=== PATIENT | female | born 1960 | race Caucasian/White ===

== ENCOUNTER 2019-10-12 20:07 | Emergency (ER) | payer MEDICARE, MEDICAID, SELFPAY ==
[2019-10-12 20:40] LABS: Basophils % 0.4 %; Eosinophils # 0.3 10^3/uL (0.0-0.8); Eosinophils % 5.2 %; Hematocrit 30.9 % (37.0-47.0); Hemoglobin 9.6 g/dL (11.5-15.3); Lymphocytes # 0.4 10^3/uL (0.8-4.8); Lymphocytes % 7.4 %; Mean Corpuscular HGB Conc 31.1 g/dL (30.0-36.0); Mean Corpuscular Hemoglobin 25.7 pg (28.0-34.0); Mean Corpuscular Volume 82.6 fL (81-99); Mean Platelet Volume 12.2 fL (7.4-10.4); Monocytes # 0.6 10^3/uL (0.2-0.9); Neutrophils # 3.8 10^3/uL (1.8-7.7); Neutrophils % 75.4 %; Nucleated Red Blood Cells % 0 %; Platelet Count 89 10^3/cmm (130-400); Red Blood Count 3.74 10^6/uL (4.1-5.3); Red Cell Distribution Width 17.2 % (12.1-15.1)
[2019-10-12 20:41] VITALS: BP 150/88; PULSE 75; RESP 18; TEMP 36.8; O2SAT 100; BMI 23.0
[2019-10-12 20:52] LABS: Alanine Aminotransferase 43 U/L (0-33); Albumin Level 3.8 g/dL (3.5-5.2); Alkaline Phosphatase 183 IU/L (35-105); Anion Gap 16.7 (5-19); Aspartate Amino Transferase 37 U/L (0-32); Blood Urea Nitrogen 8 mg/dL (8-23); Calcium 9.7 mg/dL (8.5-10.5); Carbon Dioxide 21 mmol/L (22-29); Chloride 91 mmol/L (98-107); Creatinine Clr Calc Pharmacy 74.2425; Globulin 4.1 g/dL (1.3-4.6); Glomerular Filtration Rate 85.4 mL/min (90-130); Glucose 178 mg/dL (65-115); Osmolality Calculated 258 mOsm/kg (285-295); Potassium 4.7 mmol/L (3.5-5.1); Sodium 124 mmol/L (136-145); Total Bilirubin 0.7 mg/dL (0.15-1.2); Total Protein 7.9 g/dL (6.6-8.7)
--- NOTE | 2019-10-12 21:05 | CTR_ITS ---
PROCEDURE INFORMATION: Exam: CT Abdomen And Pelvis With Contrast Exam date and time: 10/12/2019 9:38 PM Age: 59 years old Clinical indication: Other: Gi bleed; Prior surgery; Surgery date: 6+ months; Surgery type: Gb, ooph; Patient HX: C/O rectal bleeding today HX of cirrhosis and esoph varices TECHNIQUE: Imaging protocol: Computed tomography of the abdomen and pelvis with intravenous contrast. Radiation optimization: All CT scans at this facility use at least one of these dose optimization techniques: automated exposure control; mA and/or kV adjustment per patient size (includes targeted exams where dose is matched to clinical indication); or iterative reconstruction. Contrast material: OMNI 300; Contrast volume: 95 ml; Contrast route: 20G; COMPARISON: US Abdomen* [id number] 03/26/2019 8:39 AM FINDINGS: Lungs: Large right lower lobe bullae. Liver: Cirrhotic liver. Gallbladder wall thickening may be related to cirrhotic liver. Gallbladder and bile ducts: Normal. No calcified stones. No ductal dilation. Pancreas: Normal. No ductal dilation. Spleen: Normal. No splenomegaly. Adrenals: Right adrenal 18 mm nodule, dedicated nonemergent adrenal imaging advised. Kidneys and ureters: Several right kidney cysts. Left kidney nonobstructive calyceal stones. Stomach and bowel: Rectal varices seen without active extravasation. Appendix: No evidence of appendicitis. Intraperitoneal space: Moderate ascites throughout the abdomen. Diffuse bowel wall thickening likely related underlying ascites. Vasculature: Unremarkable. No abdominal aortic aneurysm. Lymph nodes: Unremarkable. No enlarged lymph nodes. Bladder: Unremarkable as visualized. Reproductive: Unremarkable as visualized. Bones/joints: Unremarkable. No acute fracture. Soft tissues: Unremarkable. CT/CT abdomen pelvis w con* [id number] IMPRESSION: 1. Negative for focal acute inflammatory process. 2. Rectal varices seen without active extravasation. 3. Large right lower lobe bullae. 4. Cirrhotic liver. 5. Gallbladder wall thickening may be related to cirrhotic liver. 6. Moderate ascites throughout the abdomen. 7. Diffuse bowel wall thickening likely related underlying ascites. 8. Right adrenal 18 mm nodule, dedicated nonemergent adrenal imaging advised. 9. Several right kidney cysts. 10. Left kidney nonobstructive calyceal stones. Radiation Dose CTDIVOL = (mGy): DLP = 525.55 (mGy-cm)
--- NOTE | 2019-10-12 21:29 | W.ED.GIBLEED ---
Documented by User: BERTIN Gallo 10/12/19 23:21 HPI - GI Bleed General: Chief complaint: GI Bleed Stated complaint: rectal bleeding Time Seen by Provider: 10/12/19 20:50 History of Present Illness: HPI Narrative: Patient started with bright red rectal bleeding today got better toward afternoon that she went on 8 then got home and felt like she need to have a bowel movement and then had some more bright red bleeding that finally stopped. Does not feel dizzy no shortness of breath no emesis Patient has a history of esophageal varices with banding multiple times history of alcoholic cirrhosis low platelet count hypothyroidism and type 2 diabetes MD complaint: blood on toilet paper and gross hematochezia Onset (ago): hour(s) Pain Consistency: now resolved Severity: mild Relieving factors: none Exacerbating factors: none Context: history of GI bleed, liver disease, hemorrhoids and known esophageal varices Associated symptoms: Reports no associated symptoms; Denies abdominal pain, chills, easy bruising, fever(s), headache(s), nausea, rash or vomiting Review of Systems Const: Denies: fever, chills or body aches Eyes: Denies: change in vision or blurry vision ENMT: Denies: throat pain or nasal congestion Card: Denies: chest pain or shortness of breath on exertion Resp: Denies: shortness of breath, productive cough or non-productive cough GI: Reports: blood in stool; Denies: abdominal pain, nausea, vomiting or black tarry stool Musc: Denies: extremity pain Skin/Breast: Denies: rash Neuro: Denies: headache Psych: Denies: anxiety or depression Ty/Lymph: Denies: easy bruising PFSH ED PFSH: Social History (Updated 09/23/19 @ 21:07 by BERTIN Reed) Smoking and tobacco status: current every day smoker Second hand smoke exposure: No Alcohol intake: former Lives independently: Yes Physical Exam Const: COMMON NORMALS: no apparent distress, average body habitus and oriented x3 HENMT: COMMON NORMALS: normocephalic HEAD & SCALP: normal to inspection and normocephalic FACE & SINUS: normal facial exam Eye: COMMON NORMALS: conjunctivae normal GENERAL EYE: normal appearance of both eyes CONJUNCTIVA: Yes conjunctivae normal Neck/C-Spine: COMMON NORMALS: no JVD Chest: COMMONS NORMALS: inspection of chest normal Resp: COMMON NORMALS: normal respiratory effort and clear to auscultation bilaterally AUSCULTATION: clear to auscultation bilaterally Cardio: COMMON NORMALS: no JVD, regular rate and regular rhythm RATE: regular rate RHYTHM: regular rhythm GI: COMMON NORMALS: normal to inspection, nondistended, normoactive bowel sounds; negative for no hepatosplenomegaly AUSCULTATION: Yes normoactive bowel sounds PALPATION: No no hepatosplenomegaly and Yes hepatomegaly PERCUSSION: dullness to percussion RECTAL EXAM: No heme negative stool and hemorrhoids Extremity: COMMON NORMALS: normal to inspection and full ROM Neuro: COMMON NORMALS: oriented x3 Procedures Stool Hemoccult Procedural Steps Taken: stool placed in appropriate test area, developer placed on stool and control areas and controls appropriately positive and negative Hemoccult result: positive Course Vital Signs: Vital signs: Vital Signs Temperature 98.2 F 10/12/19 20:41 Pulse Rate 76 10/13/19 00:34 Respiratory Rate 16 10/13/19 00:34 Blood Pressure 124/72 10/13/19 00:34 Pulse Oximetry 99 10/13/19 00:34 MDM - GI Bleed MDM Narrative: Medical decision making narrative: Discussed case with Dr. Simms agrees with plan of care patient to follow-up at clinic in a day or 2 and get repeat CBC patient wants go home does not want to be admitted to the hospital for observation bleeding has not happened since she has been here in the ER Lab Data: Labs: Lab Results 10/12/19 10/12/19 10/12/19 Range/Units 20:28 20:28 20:28 WBC 5.0 (4.0-10.0) 10^3/ uL RBC 3.74 L (4.1-5.3) 10^6/u L Hgb 9.6 L (11.5-15.3) g/dL Hct 30.9 L (37.0-47.0) % MCV 82.6 (81-99) fL MCH 25.7 L (28.0-34.0) pg MCHC 31.1 (30.0-36.0) g/dL RDW 17.2 H (12.1-15.1) % Plt Count 89 L (130-400) 10^3/c mm MPV 12.2 H (7.4-10.4) fL Neut % (Auto) 75.4 % Lymph % (Auto) 7.4 % Beckham % (Auto) 11.0 % Eos % (Auto) 5.2 % Baso % (Auto) 0.4 % Neut # (Auto) 3.8 (1.8-7.7) 10^3/u L Lymph # (Auto) 0.4 L (0.8-4.8) 10^3/u L Beckham # (Auto) 0.6 (0.2-0.9) 10^3/u L Eos # (Auto) 0.3 (0.0-0.8) 10^3/u L Baso # (Auto) 0.0 (0.0-0.1) 10^3/u L Nucleated RBC % (a uto) 0 % Nucleated RBCs # 0.0 /100WBC PT 13.50 H (10.5-13.3) SECO NDS INR 1.00 (0.8-1.2) Sodium 124 L (136-145) mmol/L Potassium 4.7 (3.5-5.1) mmol/L Chloride 91 L (98-107) mmol/L Carbon Dioxide 21 L (22-29) mmol/L Anion Gap 16.7 (5-19) BUN 8 (8-23) mg/dL Creatinine 0.7 (0.5-0.9) mg/dL GFR Calculation 85.4 L (90-130) mL/min Glucose 178 H (65-115) mg/dL Calculated Osmolal ity 258 L (285-295) mOsm/k g Calcium 9.7 (8.5-10.5) mg/dL Total Bilirubin 0.7 (0.15-1.2) mg/dL AST 37 H (0-32) U/L ALT 43 H (0-33) U/L Alkaline Phosphata se 183 H (35-105) IU/L Total Protein 7.9 (6.6-8.7) g/dL Albumin 3.8 (3.5-5.2) g/dL Globulin 4.1 (1.3-4.6) g/dL Blood Type Rho(D) Type Antibody Screen 05/10/20 Range/Units 20:28 WBC (4.0-10.0) 10^3/ uL RBC (4.1-5.3) 10^6/u L Hgb (11.5-15.3) g/dL Hct (37.0-47.0) % MCV (81-99) fL MCH (28.0-34.0) pg MCHC (30.0-36.0) g/dL RDW (12.1-15.1) % Plt Count (130-400) 10^3/c mm MPV (7.4-10.4) fL Neut % (Auto) % Lymph % (Auto) % Beckham % (Auto) % Eos % (Auto) % Baso % (Auto) % Neut # (Auto) (1.8-7.7) 10^3/u L Lymph # (Auto) (0.8-4.8) 10^3/u L Beckham # (Auto) (0.2-0.9) 10^3/u L Eos # (Auto) (0.0-0.8) 10^3/u L Baso # (Auto) (0.0-0.1) 10^3/u L Nucleated RBC % (a uto) % Nucleated RBCs # /100WBC PT (10.5-13.3) SECO NDS INR (0.8-1.2) Sodium (136-145) mmol/L Potassium (3.5-5.1) mmol/L Chloride (98-107) mmol/L Carbon Dioxide (22-29) mmol/L Anion Gap (5-19) BUN (8-23) mg/dL Creatinine (0.5-0.9) mg/dL GFR Calculation (90-130) mL/min Glucose (65-115) mg/dL Calculated Osmolal ity (285-295) mOsm/k g Calcium (8.5-10.5) mg/dL Total Bilirubin (0.15-1.2) mg/dL AST (0-32) U/L ALT (0-33) U/L Alkaline Phosphata se (35-105) IU/L Total Protein (6.6-8.7) g/dL Albumin (3.5-5.2) g/dL Globulin (1.3-4.6) g/dL Blood Type A Negative Rho(D) Type Negaive Antibody Screen Negative Discharge Plan Discharge Patient Disposition: Home, Self-Care Clinical Impression: Alcoholic cirrhosis of liver without ascites, Hematochezia Condition: Stable Prescriptions: No Action sulfamethoxazole-trimethoprim [Bactrim DS] 800-160 mg tablet 1 tab PO BID 10 Days Qty: 20 RF: 0 omeprazole 40 mg capsule,delayed release(DR/EC) 40 mg PO DAILY RF: 0 levothyroxine 75 mcg capsule 75 mcg PO DAILY RF: 0 propranolol 120 mg capsule,extended release 24 hr 120 mg PO DAILY RF: 0 spironolactone 50 mg tablet 50 mg PO BID RF: 0 glipizide 5 mg tablet extended release 24hr 5 mg PO DAILY RF: 0 metformin 1,000 mg tablet 1,000 mg PO BID RF: 0 trazodone 50 mg tablet 50 mg PO DAILY RF: 0 Discharge Orders: Discharge Order (Routine); Ordered 10/12/19 Ordered By: Willi Gibbs Discharge Diet: Usual diet Discharge Activity: Resume usual activity Patient Instructions: Hemorrhoids (ED) Activity Restrictions/Additional Instructions: Follow-up with medical provider as directed. Return to the ER or your medical provider if condition worsens. Please read and understand discharge instructions. If any questions ask please. Follow-up with BERTIN Alcala in a couple days and get hemoglobin rechecked hemoglobin here in the ER was 9.6 Discharge Date/Time: 10/13/19 00:35 Coding Level of Care Code ED Oil Developer for Chg Fwd Exam Comprehensive Documented by User: Emigdio Simms DO 10/13/19 02:35 HPI - GI Bleed General: Chief complaint: GI Bleed Stated complaint: rectal bleeding Time Seen by Provider: 10/12/19 20:50 PFSH ED PFSH: Social History (Updated 09/23/19 @ 21:07 by BERTIN Reed) Smoking and tobacco status: current every day smoker Second hand smoke exposure: No Alcohol intake: former Lives independently: Yes Course Vital Signs: Vital signs: Vital Signs Temperature 98.2 F 10/12/19 20:41 Pulse Rate 76 10/13/19 00:34 Respiratory Rate 16 10/13/19 00:34 Blood Pressure 124/72 10/13/19 00:34 Pulse Oximetry 99 10/13/19 00:34 MDM - GI Bleed MDM Narrative: Medical decision making narrative: 59-year-old female checked out to me by BERTIN Crockett. I agree with his history, examination, and work-up. This lady has not had any further bleeding since coming to the ER. She has been up walking in the ER. Her hemoglobin is 9.6, she believes that stable from her prior hemoglobin of couple of months ago. She will have her blood count checked in 48 hours. She will return for any return of bleeding. She is received some IV fluid resuscitation here. She is feeling much better. She was offered admission, but she asked to go home. Lab Data: Labs: Lab Results 10/12/19 10/12/19 10/12/19 Range/Units 20:28 20:28 20:28 WBC 5.0 (4.0-10.0) 10^3/ uL RBC 3.74 L (4.1-5.3) 10^6/u L Hgb 9.6 L (11.5-15.3) g/dL Hct 30.9 L (37.0-47.0) % MCV 82.6 (81-99) fL MCH 25.7 L (28.0-34.0) pg MCHC 31.1 (30.0-36.0) g/dL RDW 17.2 H (12.1-15.1) % Plt Count 89 L (130-400) 10^3/c mm MPV 12.2 H (7.4-10.4) fL Neut % (Auto) 75.4 % Lymph % (Auto) 7.4 % Beckham % (Auto) 11.0 % Eos % (Auto) 5.2 % Baso % (Auto) 0.4 % Neut # (Auto) 3.8 (1.8-7.7) 10^3/u L Lymph # (Auto) 0.4 L (0.8-4.8) 10^3/u L Beckham # (Auto) 0.6 (0.2-0.9) 10^3/u L Eos # (Auto) 0.3 (0.0-0.8) 10^3/u L Baso # (Auto) 0.0 (0.0-0.1) 10^3/u L Nucleated RBC % (a uto) 0 % Nucleated RBCs # 0.0 /100WBC PT 13.50 H (10.5-13.3) SECO NDS INR 1.00 (0.8-1.2) Sodium 124 L (136-145) mmol/L Potassium 4.7 (3.5-5.1) mmol/L Chloride 91 L (98-107) mmol/L Carbon Dioxide 21 L (22-29) mmol/L Anion Gap 16.7 (5-19) BUN 8 (8-23) mg/dL Creatinine 0.7 (0.5-0.9) mg/dL GFR Calculation 85.4 L (90-130) mL/min Glucose 178 H (65-115) mg/dL Calculated Osmolal ity 258 L (285-295) mOsm/k g Calcium 9.7 (8.5-10.5) mg/dL Total Bilirubin 0.7 (0.15-1.2) mg/dL AST 37 H (0-32) U/L ALT 43 H (0-33) U/L Alkaline Phosphata se 183 H (35-105) IU/L Total Protein 7.9 (6.6-8.7) g/dL Albumin 3.8 (3.5-5.2) g/dL Globulin 4.1 (1.3-4.6) g/dL Blood Type Rho(D) Type Antibody Screen 10/12/19 Range/Units 20:28 WBC (4.0-10.0) 10^3/ uL RBC (4.1-5.3) 10^6/u L Hgb (11.5-15.3) g/dL Hct (37.0-47.0) % MCV (81-99) fL MCH (28.0-34.0) pg MCHC (30.0-36.0) g/dL RDW (12.1-15.1) % Plt Count (130-400) 10^3/c mm MPV (7.4-10.4) fL Neut % (Auto) % Lymph % (Auto) % Beckham % (Auto) % Eos % (Auto) % Baso % (Auto) % Neut # (Auto) (1.8-7.7) 10^3/u L Lymph # (Auto) (0.8-4.8) 10^3/u L Beckham # (Auto) (0.2-0.9) 10^3/u L Eos # (Auto) (0.0-0.8) 10^3/u L Baso # (Auto) (0.0-0.1) 10^3/u L Nucleated RBC % (a uto) % Nucleated RBCs # /100WBC PT (10.5-13.3) SECO NDS INR (0.8-1.2) Sodium (136-145) mmol/L Potassium (3.5-5.1) mmol/L Chloride (98-107) mmol/L Carbon Dioxide (22-29) mmol/L Anion Gap (5-19) BUN (8-23) mg/dL Creatinine (0.5-0.9) mg/dL GFR Calculation (90-130) mL/min Glucose (65-115) mg/dL Calculated Osmolal ity (285-295) mOsm/k g Calcium (8.5-10.5) mg/dL Total Bilirubin (0.15-1.2) mg/dL AST (0-32) U/L ALT (0-33) U/L Alkaline Phosphata se (35-105) IU/L Total Protein (6.6-8.7) g/dL Albumin (3.5-5.2) g/dL Globulin (1.3-4.6) g/dL Blood Type A Negative Rho(D) Type Negaive Antibody Screen Negative Discharge Plan Discharge Patient Disposition: Home, Self-Care Clinical Impression: Alcoholic cirrhosis of liver without ascites, Hematochezia Condition: Stable Prescriptions: No Action sulfamethoxazole-trimethoprim [Bactrim DS] 800-160 mg tablet 1 tab PO BID 10 Days Qty: 20 RF: 0 omeprazole 40 mg capsule,delayed release(DR/EC) 40 mg PO DAILY RF: 0 levothyroxine 75 mcg capsule 75 mcg PO DAILY RF: 0 propranolol 120 mg capsule,extended release 24 hr 120 mg PO DAILY RF: 0 spironolactone 50 mg tablet 50 mg PO BID RF: 0 glipizide 5 mg tablet extended release 24hr 5 mg PO DAILY RF: 0 metformin 1,000 mg tablet 1,000 mg PO BID RF: 0 trazodone 50 mg tablet 50 mg PO DAILY RF: 0 Discharge Orders: Discharge Order (Routine); Ordered 10/12/19 Ordered By: Willi Gibbs Discharge Diet: Usual diet Discharge Activity: Resume usual activity Patient Instructions: Hemorrhoids (ED) Activity Restrictions/Additional Instructions: Follow-up with medical provider as directed. Return to the ER or your medical provider if condition worsens. Please read and understand discharge instructions. If any questions ask please. Follow-up with BERTIN Alcala in a couple days and get hemoglobin rechecked hemoglobin here in the ER was 9.6 Discharge Date/Time: 10/13/19 00:35 Coding Level of Care Code ED Oil Developer for Juanis Fwd Exam Comprehensive
[2019-10-12] MEDS: iohexol 300 mg/mL 100 mL Btl IV (22:19)
[2019-10-12 23:06] VITALS: BP 124/72; PULSE 75; RESP 20; O2SAT 99
[2019-10-12] MEDS: sodium chloride 0.9% 1,000 ML 999 ML IV (23:47)
[2019-10-13 00:34] VITALS: BP 124/72; PULSE 76; RESP 16; O2SAT 99
== END 2019-10-13 00:35 | disposition home or self-care (01) ==
PROVIDERS: Emergency Medicine; Emergency Provider Nurse Practitioner Family
DX: K70.30 Alcoholic cirrhosis of liver without ascites (principal); K92.1 Melena; Z79.84 Long term (current) use of oral hypoglycemic drugs; F17.210 Nicotine dependence, cigarettes, uncomplicated
CPT/HCPCS: 12345; 36415; 74177; 80053; 82272; 85025; 85610; 86850; 86900; 96360; 99282; 99283; J7030; Q9967

== ENCOUNTER → 2019-10-17 11:14 | Outpatient (BNVA) | payer MEDICARE, MEDICAID, SELFPAY | PROVIDERS: Visit Provider Nurse Practitioner Family | DX: E27.9 Disorder of adrenal gland, unspecified (principal); E11.8 Type 2 diabetes mellitus with unspecified complications; D64.9 Anemia, unspecified | CPT/HCPCS: 83036; 85025 ==

== ENCOUNTER 2019-10-31 11:14 | Outpatient (CLI) | payer MEDICARE, MEDICAID, SELFPAY ==
--- NOTE | 2019-10-31 14:26 | MR_ITS ---
WS: [id number] MRI adrenal glands with and without contrast. HISTORY: Multiplanar, multisequence imaging is performed of the adrenal glands. COMPARISON: CT 10/12/2019. Scar formation with loss of volume in the central liver involving the jolanta hepatis, RIGHT and LEFT l obes. Marked nodularity of the surface of the liver. There is no definite enhancing nodule is identif ied. Very mild thickening of the RIGHT adrenal gland measuring 2.0 x 0.8 cm. On the out of phase imaging t here is loss of signal suggests this is probably benign. There is some very mild peripheral enhanceme nt on the postcontrast imaging. The LEFT adrenal gland is normal. Mild splenomegaly. Moderate distention of the gallbladder. Gallbladder was better identified and eval uated by CT. RIGHT renal cysts with the largest lobulated from the upper pole measuring 1.8 cm from t he upper pole. There is a small amount of fluid adjacent to the jolanta hepatis. Pancreas not well seen . MR/MR adrenals wo/w con [id number] IMPRESSION: 1. Small RIGHT adrenal mass. Favor benign adenoma. Due to its small size follo w-up is recommended. Follow-up can be done by CT evaluation. With no history of malignancy this is likely benign. 2. Severe changes of hepatic cirrhosis. No enhancing mass identified. 3. Small amount of ascites. 4. RIGHT renal cysts.
== END 2019-10-31 11:15 | disposition home or self-care (01) ==
LOC: RADSHAW 11:18
PROVIDERS: PCP Nurse Practitioner Family; Visit Provider Nurse Practitioner Family
DX: R93.89 Abnormal findings on diagnostic imaging of other specified body structures (principal); D49.7 Neoplasm of unspecified behavior of endocrine glands and other parts of nervous system; K74.60 Unspecified cirrhosis of liver; R18.8 Other ascites; N28.1 Cyst of kidney, acquired
CPT/HCPCS: 74183; A9579

== ENCOUNTER 2019-11-05 09:21 | Outpatient (CLI) | payer MEDICARE, MEDICAID, SELFPAY ==
--- NOTE | 2019-11-05 09:30 | CT_ITS ---
WS: [id number] CT chest wo/w con [id number] REASON FOR EXAM: BLEUB ON CT ABD PER RADIOLOGIST IV CONTRAST ADMINISTERED: Omnipaque 300, 75 mL TOTAL EXAM DLP: All CT scans at [facility] use at least one of these dose optimization techniques: automat ed exposure control; mA and/or kV adjustment per patient size (includes targeted exams where dose is matched to clinical indication); or iterative reconstruction. FINDINGS: A large bleb is seen in the region the right hilum measures 4.53 cm. Displacing the lung pa renchyma slightly. The remaining lungs show normal aeration and normal perfusion. The thyroid gland was normal. The supr aclavicular areas show no abnormalities. The pulmonary arteries fill readily no filling defects to suggest thromboembolic disease. The mediastinum was normal. The ascertaining aorta was normal as well as the arch of the aorta and de scending thoracic aorta. A small hiatal hernia is noted. The liver is slightly irregular in outline. The right adrenal gland shows mild enlargement measured 1.8 mm the gland appears to enhance slightly and consideration of a three-phase study of the gland recommended nonemergent. Right enlargement of the spleen measures 13.27 cm is noted. Granulomas are seen in the spleen. The liver shows ill-defined enhancement suggesting steatosis. CT/CT chest wo/w con [id number] IMPRESSION: In the right sob hilar region is a dominant 4.53 cm large bleb. Questionable functioning adenoma the right adrenal gland. Steatosis of the liver. Contour of the liver suspicious of cirrhosis. The gallbladder was not observed on this scan.
[2019-11-05] MEDS: iohexol 300 mg/mL 100 mL Btl IV (10:01)
== END 2019-11-05 09:22 | disposition home or self-care (01) ==
LOC: RAD 09:25
PROVIDERS: PCP Nurse Practitioner Family; Visit Provider Nurse Practitioner Family
DX: R93.5 Abnormal findings on diagnostic imaging of other abdominal regions, including retroperitoneum (principal); J43.8 Other emphysema; K76.0 Fatty (change of) liver, not elsewhere classified
CPT/HCPCS: 71270

== ENCOUNTER → 2019-12-30 09:05 | Outpatient (BNVA) | payer MEDICARE, MEDICAID, SELFPAY | PROVIDERS: PCP Nurse Practitioner Family; Visit Provider Nurse Practitioner Family | DX: M54.9 Dorsalgia, unspecified (principal); E11.8 Type 2 diabetes mellitus with unspecified complications | CPT/HCPCS: 81000 ==

== ENCOUNTER 2020-01-19 14:13 | Outpatient (CLI) | payer MEDICARE, MEDICAID, SELFPAY ==
--- NOTE | 2020-01-19 14:22 | MM_ITS ---
WS: [id number] BILATERAL SCREENING DIGITAL MAMMOGRAM WITH CAD HISTORY: SCREENING COMPARISON: 08/12/2018 and 04/18/2017 Bilateral CC and MLO views submitted. Computer aided detection analyzed. Breast composition: The breasts are heterogeneously dense, which may obscure small masses. No suspici ous masses, microcalcifications or architectural distortion. Asymmetries are stable. Benign calcifica tions and prior biopsy clip LEFT breast. MM/[place] [id number] IMPRESSION: BI-RADS: 2-Benign FOLLOW UP: 1 Year Follow-up
== END 2020-01-19 14:14 | disposition home or self-care (01) ==
LOC: RADSHAW 14:19
PROVIDERS: PCP Physician Assistant Medical; Visit Provider Physician Assistant Medical
DX: Z12.31 Encounter for screening mammogram for malignant neoplasm of breast (principal)
CPT/HCPCS: 77067

== ENCOUNTER → 2021-02-18 11:54 | Day surgery (SDC) | payer MEDICARE, MEDICAID, SELFPAY ==
--- NOTE | 2021-02-18 11:45 | US_ITS ---
WS: [id number] Abdominal ultrasound, limited. History: Evaluate for ascites. Comparison: None. All 4 quadrants are imaged by ultrasound to evaluate for ascites. Moderate to large amount of ascites in all 4 quadrants. US/US abdomen limited [id number] IMPRESSION: Moderate to large amount of ascites.
[2021-02-18 12:16] VITALS: BP 116/68; PULSE 80; RESP 18; O2SAT 99
[2021-02-18 12:57] VITALS: BMI 23.9
[2021-02-18 13:15] VITALS: BP 97/61; PULSE 75; RESP 18; O2SAT 100
== END ==
PROVIDERS: PCP Physician Assistant Medical; Visit Provider Internal Medicine
DX: R18.8 Other ascites (principal)
CPT/HCPCS: 49082; 76705

== ENCOUNTER 2021-02-28 02:29 | Emergency (ER) | payer MEDICARE, MEDICAID, SELFPAY ==
[2021-02-28 03:08] VITALS: BP 90/62; PULSE 79; RESP 18; TEMP 36.8; O2SAT 100; BMI 32.8
--- NOTE | 2021-02-28 04:05 | XRR_ITS ---
PROCEDURE INFORMATION: Exam: XR Chest Exam date and time: 02/28/2021 4:05 AM Age: 60 years old Clinical indication: Shortness of breath; Additional info: SOB TECHNIQUE: Imaging protocol: XR of the chest. Views: 1 view. COMPARISON: CT chest wo/w con [id number] 11/05/2019 9:46 AM FINDINGS: Lungs: No interval lung disease. Pleural spaces: Still no pneumothorax or apparent pleural fluid. Heart/Mediastinum: Still no cardiomegaly. Mediastinum still unremarkable Bones/joints: No suggestion of acute bony disease. XR/XR chest 1V portable [id number] IMPRESSION: No acute findings.
--- NOTE | 2021-02-28 04:06 | ECG_ITS ---
[facility] Test Date: 2021-02-28 Pat Name: Leticia Thompson Department: Room: Gender: Female Temperature Control Inspector: : 1960 Requested By: Emigdio Henderson Order Number: [id number] Josephine MD: Wilman Gandhi M.D. Measurements Intervals [place] Rate: 73 P: 71 NH: 210 QRS: -29 QRSD: 68 T: 40 QT: 374 QTc: 415 Interpretive Statements SINUS RHYTHM WITH FIRST DEGREE AV BLOCK BORDERLINE LEFT AXIS DEVIATION [QRS AXIS < -20] LOW QRS VOLTAGE IN PRECORDIAL LEADS [QRS DEFLECTION < 1.0 mV IN CHEST LEADS] PATTERN CONSISTENT WITH PULMONARY DISEASE Compared to ECG 06/07/2018 16:26:59 First degree AV block now present Low QRS voltage now present Electronically Signed On 02-28-2021 22:18:24 CDT by Wilman Gandhi M.D. [id number]
[2021-02-28 04:43] LABS: Add Urine Microscopic? NO; Charge for UA Resulting for Rev
[2021-02-28 04:47] LABS: Basophils # 0.1 10^3/uL (0.0-0.1); Basophils % 1.3 %; Eosinophils # 0.4 10^3/uL (0.0-0.8); Eosinophils % 6.3 %; Hematocrit 27.9 % (37.0-47.0); Hemoglobin 8.9 g/dL (11.5-15.3); Lymphocytes # 0.3 10^3/uL (0.8-4.8); Lymphocytes % 5.2 %; Mean Corpuscular HGB Conc 31.9 g/dL (30.0-36.0); Mean Corpuscular Hemoglobin 25.1 pg (28.0-34.0); Mean Corpuscular Volume 78.8 fl (81-99); Mean Platelet Volume 10.4 fL (7.4-10.4); Monocytes # 0.6 10^3/uL (0.2-0.9); Monocytes % 10.7 %; Neutrophils # 4.24 10^3/uL (1.8-7.7); Neutrophils % 75.8 %; Nucleated Red Blood Cells % 0 %; Platelet Count 149 10^3/cmm (130-400); Red Blood Count 3.54 10^6/uL (4.1-5.3); Red Cell Distribution Width 17.2 % (12.1-15.1); White Blood Count 5.6 10^3/uL (4.0-10.0)
[2021-02-28 05:05] LABS: Bilirubin Urine Neg (Negative); Blood Urine Neg (Negative); Glucose Urine UA 4+ (Normal); Ketones Urine Negative (Negative); Leukocyte Esterase Urine Negative (Negative); Nitrate Urine Negative (Negative); Protein Urine Neg (Negative); Urine Appearance Clear (CLEAR); Urine Color Yellow (Yellow); Urobilinogen Urine Norm (Negative); pH Urine 5 (5-7)
[2021-02-28 05:17] LABS: Alanine Aminotransferase 54 U/L (0-33); Alkaline Phosphatase 248 IU/L (35-105); Aspartate Amino Transferase 55 U/L (0-32); Blood Urea Nitrogen 12 mg/dL (8-23); C Reactive Protein 16.6 mg/L (0.0-4.9); Calcium 8.7 mg/dL (8.5-10.5); Carbon Dioxide 23 mmol/L (22-29); Chloride 90 mmol/L (98-107); Globulin 3.8 g/dL (1.3-4.6); Glomerular Filtration Rate 85.1 mL/min (90-130); Glucose 324 mg/dL (65-115); Magnesium 1.6 mg/dL (1.7-2.3); Osmolality Calculated 264 mOsm/kg (285-295); Sodium 121 mmol/L (136-145); Total Bilirubin 0.7 mg/dL (0.15-1.2); Total Protein 6.8 g/dL (6.6-8.7)
[2021-02-28 05:37] LABS: INR 1.21 (0.8-1.2)
[2021-02-28 05:56] VITALS: BP 121/69; PULSE 78; RESP 16; O2SAT 98
--- NOTE | 2021-02-28 06:05 | ED_ITS ---
Documented by User: Emigdio Simms DO 03/04/21 21:03 HPI - Abdominal Pain General: Chief Complaint: Abdominal Pain Stated Complaint: abdomnial swelling Time Seen by Provider: 02/28/21 03:48 History of Present Illness: HPI narrative: 60-year-old female with a history of end-stage liver disease. She presents with multiple complaints, including congestion, sinus drainage, sore throat, and increasing belly pain and swelling, so much so that she is short of breath. MD elicited complaint: abdominal pain Pertinent past history: other Onset (ago): day(s) Pain Consistency: constant Location: Diffuse Severity: moderate Quality: cramping and aching Radiation: none Migration to: no migration Exacerbating factors: movement Relieving factors: nothing Associated Symptoms: Reports anorexia, GI cramping, diarrhea, nausea, poor appetite and vomiting; Denies chills, fever(s) and hematochezia Review of Systems Const: Denies: fever(s) or chills Card: Denies: chest pain Resp: Reports: dyspnea, productive cough, non-productive cough and wheezing GI: Reports: nausea, vomiting, diarrhea and GI cramping; Denies: hematochezia PFSH ED PFSH: Medical History (Updated 02/28/21 @ 07:14 by Nabor Dockery DO) Alcoholic cirrhosis of liver without ascites Esophageal varices in alcoholic cirrhosis Type 2 diabetes mellitus with complication, without long-term current use of insulin Social History (Updated 02/21/21 @ 10:16 by Lalita Griggs LPN) Quit status (tobacco): has quit using tobacco Year quit tobacco: 2020 Former quit date comment: Hx of 1 PPD x 50 Years Second hand smoke exposure: Yes Smoking risk assessment/counseling performed?: No Alcohol intake: former Counseling given: No Counseling given: No Lives independently: Yes Household members: none Marital status: / Current occupational status: disabled History of recent travel: No Current gender identity: Female Physical Exam Const: COMMON NORMALS: no acute distress, patient oriented x3 and alert EXAM LIMITATIONS: altered mental status HENMT: COMMON NORMALS: normocephalic HEAD & SCALP: normocephalic Chest: COMMONS NORMALS: normal inspection of the chest Resp: COMMON NORMALS: normal respiratory effort, No use of accessory muscles and clear to auscultation bilaterally AUSCULTATION: clear to auscultation bilaterally Cardio: COMMON NORMALS: regular rate and regular rhythm RATE: regular rate RHYTHM: regular rhythm GI: INSPECTION: Yes abdominal distension PALPATION: Yes Tenderness to palpation present (GI) (diffuse) Neuro: COMMON NORMALS: patient oriented x3 SENSORIUM/ORIENTATION: Yes alert Course Vital Signs: Vital signs: Vital Signs Temperature 98.2 F 02/28/21 03:08 Pulse Rate 71 02/28/21 09:12 Respiratory Rate 18 02/28/21 09:12 Blood Pressure 104/66 02/28/21 09:12 Pulse Oximetry 100 02/28/21 09:12 MDM - Abdominal Pain MDM Narrative: Medical decision making narrative: 60-year-old female with a history of end-stage liver disease. Her hemoglobin is 9. White blood cell count is 5.6. Sodium is 121. She has chronic hyponatremia from liver disease and fluid retention. She has a rotund distended belly with fluid wave and dullness to percussion. She obviously needs paracentesis, mainly for symptom control purposes. She will await ultrasound-guided paracentesis later this morning. She will otherwise be treated for sinusitis Lab Data: Labs: Lab Results 02/28/21 02/28/21 02/28/21 04:25 04:25 04:25 WBC 5.6 10^3/uL 10^3/ uL (4.0-10.0) RBC 3.54 10^6/uL L 10 ^6/uL (4.1-5.3) Hgb 8.9 g/dL L g/dL (11.5-15.3) Hct 27.9 % L % (37.0-47.0) MCV 78.8 fl L fl (81-99) MCH 25.1 pg L pg (28.0-34.0) MCHC 31.9 g/dL g/dL (30.0-36.0) RDW 17.2 % H % (12.1-15.1) Plt Count 149 10^3/cmm 10^3 /cmm (130-400) MPV 10.4 fL fL (7.4-10.4) Neut % (Auto) 75.8 % % Lymph % (Auto) 5.2 % % [place] % (Auto) 10.7 % % Eos % (Auto) 6.3 % % Baso % (Auto) 1.3 % % Neut # (Auto) 4.24 10^3/uL 10^3 /uL (1.8-7.7) Lymph # (Auto) 0.3 10^3/uL L 10^ 3/uL (0.8-4.8) [place] # (Auto) 0.6 10^3/uL 10^3/ uL (0.2-0.9) Eos # (Auto) 0.4 10^3/uL 10^3/ uL (0.0-0.8) Baso # (Auto) 0.1 10^3/uL 10^3/ uL (0.0-0.1) Nucleated RBC % (a uto) 0 % % Nucleated RBCs # 0.0 /100WBC /100W BC PT 15.60 SECONDS H S ECONDS (12.1-14.9) INR 1.21 H (0.8-1.2) Sodium 121 mmol/L L mmol /L (136-145) Potassium 5.0 mmol/L mmol/L (3.5-5.1) Chloride 90 mmol/L L mmol/ L (98-107) Carbon Dioxide 23 mmol/L mmol/L (22-29) Anion Gap 13.0 (5-19) BUN 12 mg/dL mg/dL (8-23) Creatinine 0.7 mg/dL mg/dL (0.5-0.9) GFR Calculation 85.1 mL/min L mL/ min (90-130) Glucose 324 mg/dL H mg/dL (65-115) Calculated Osmolal ity 264 mOsm/kg L mOs m/kg (285-295) Calcium 8.7 mg/dL mg/dL (8.5-10.5) Magnesium 1.6 mg/dL L mg/dL (1.7-2.3) Total Bilirubin 0.7 mg/dL mg/dL (0.15-1.2) AST 55 U/L H U/L (0-32) ALT 54 U/L H U/L (0-33) Alkaline Phosphata se 248 IU/L H IU/L (35-105) C-Reactive Protein 16.6 mg/L H mg/L (0.0-4.9) Total Protein 6.8 g/dL g/dL (6.6-8.7) Albumin 3.0 g/dL L g/dL (3.5-5.2) Globulin 3.8 g/dL g/dL (1.3-4.6) Urine Color Urine Appearance Urine pH Ur Specific Gravit y Urine Protein Urine Glucose (UA) Urine Ketones Urine Blood Urine Nitrate Urine Bilirubin Urine Urobilinogen Ur Leukocyte Cayla ase 02/28/21 04:28 WBC RBC Hgb Hct MCV MCH MCHC RDW Plt Count MPV Neut % (Auto) Lymph % (Auto) [place] % (Auto) Eos % (Auto) Baso % (Auto) Neut # (Auto) Lymph # (Auto) [place] # (Auto) Eos # (Auto) Baso # (Auto) Nucleated RBC % (a uto) Nucleated RBCs # PT INR Sodium Potassium Chloride Carbon Dioxide Anion Gap BUN Creatinine GFR Calculation Glucose Calculated Osmolal ity Calcium Magnesium Total Bilirubin AST ALT Alkaline Phosphata se C-Reactive Protein Total Protein Albumin Globulin Urine Color Yellow (Yellow) Urine Appearance Clear (CLEAR) Urine pH 5 (5-7) Ur Specific Gravit y 1.010 (1.005-1.030) Urine Protein Neg (Negative) Urine Glucose (UA) 4+ H (Normal) Urine Ketones Negative (Negative) Urine Blood Neg (Negative) Urine Nitrate Negative (Negative) Urine Bilirubin Neg (Negative) Urine Urobilinogen Norm mg/dL mg/dL (Negative) Ur Leukocyte [place] ase Negative (Negative) Discharge Plan Discharge Patient Disposition: Home Clinical Impression: End stage liver disease, Alcoholic cirrhosis Ascites Qualifiers: Ascites type: due to alcoholic cirrhosis Qualified Code(s): K70.31 - Alcoholic cirrhosis of liver with ascites Sinusitis Qualifiers: Sinusitis location: sphenoidal Chronicity: acute Condition: Stable Prescriptions: New guaifenesin [Mucinex] 600 mg tablet extended release 12hr 600 mg PO BID PRN (Reason: congestion) Qty: 14 RF: 0 No Action propranolol 120 mg capsule,extended release 24 hr 120 mg PO DAILY RF: 0 metformin 1,000 mg tablet 1,000 mg PO BID RF: 0 trazodone 50 mg tablet 50 mg PO DAILY RF: 0 spironolactone 50 mg tablet 50 mg PO QAM RF: 0 cyclobenzaprine 10 mg tablet 10 mg PO TID RF: 0 glipizide 10 mg tablet extended release 24hr 10 mg PO DAILY Qty: 30 RF: 2 azelastine 137 mcg (0.1 %) aerosol,spray 2 spray intranasal BID RF: 0 cetirizine 10 mg tablet 10 mg PO DAILY PRN (Reason: Allergic Symptoms) RF: 0 levothyroxine [Euthyrox] 75 mcg tablet 75 mcg PO DAILY RF: 0 ferrous sulfate 325 mg (65 mg iron) tablet 325 mg PO DAILY RF: 0 fluticasone propionate 50 mcg/actuation spray,suspension 2 spray intranasal DAILY RF: 0 furosemide 40 mg tablet 40 mg PO DAILY RF: 0 magnesium oxide,aspartate,citr 400 mg magnesium capsule 400 mg PO DAILY RF: 0 omeprazole 40 mg capsule,delayed release(DR/EC) 40 mg PO BID RF: 0 tramadol 50 mg tablet 50 mg PO Q8H PRN (Reason: Pain, Moderate) RF: 0 albuterol sulfate [Ventolin HFA] 90 mcg/actuation HFA aerosol inhaler 2 puff inhalation QID RF: 0 lidocaine (PF) 10 mg/mL (1 %) solution 10 mg SUBCUT ONCE Qty: 1 RF: 0 Discharge Orders: Discharge ED (Routine); Ordered 02/28/21 Ordered By: Nabor Dockery Referrals: Berny Crooks MD [Physician] - 4-7 days Mary Tsia MD [Primary Care Provider] - Patient Instructions: Sinusitis (ED), Ascites (ED) Activity Restrictions/Additional Instructions: Return for fever greater than 100, vomiting liquids or medications, worsening pain, other concerning symptoms peer Sign Out Sign Out Data: Patient Sign Out occurred on 02/28/21 at 07:11. Patient's care was discussed, and care was transferred from to Nabor Dockery DO. Coding Level of Care Code ED Devops Engineer for Chg Fwd Exam Detailed Documented by User: Nabor Dockery DO 02/28/21 07:16 HPI - Abdominal Pain General: Chief Complaint: Abdominal Pain Stated Complaint: abdomnial swelling Time Seen by Provider: 02/28/21 03:48 PFSH ED PFSH: Medical History (Updated 02/28/21 @ 07:14 by Nabor Dockery DO) Alcoholic cirrhosis of liver without ascites Esophageal varices in alcoholic cirrhosis Type 2 diabetes mellitus with complication, without long-term current use of insulin Social History (Updated 02/21/21 @ 10:16 by Lalita Griggs LPN) Quit status (tobacco): has quit using tobacco Year quit tobacco: 2020 Former quit date comment: Hx of 1 PPD x 50 Years Second hand smoke exposure: Yes Smoking risk assessment/counseling performed?: No Alcohol intake: former Counseling given: No Counseling given: No Lives independently: Yes Household members: none Marital status: / Current occupational status: disabled History of recent travel: No Current gender identity: Female Course Vital Signs: Vital signs: Vital Signs Temperature 98.2 F 02/28/21 03:08 Pulse Rate 71 02/28/21 09:12 Respiratory Rate 18 02/28/21 09:12 Blood Pressure 104/66 02/28/21 09:12 Pulse Oximetry 100 02/28/21 09:12 MDM - Abdominal Pain MDM Narrative: Medical decision making narrative: Dr. Simms has seen and discharge the patient however we held her in the emergency room making arrangements for paracentesis. [place] it was impractical to send her home also were concerned about complaints of her returning later today. Called talk to Dr. Crooks. He said he will arrange for the paracentesis and outpatients. We will go ahead and discharge her and have her brought directly to outpatients with Dr. Crooks will see her and perform the paracentesis. Lab Data: Labs: Lab Results 02/28/21 02/28/21 02/28/21 04:25 04:25 04:25 WBC 5.6 10^3/uL 10^3/ uL (4.0-10.0) RBC 3.54 10^6/uL L 10 ^6/uL (4.1-5.3) Hgb 8.9 g/dL L g/dL (11.5-15.3) Hct 27.9 % L % (37.0-47.0) MCV 78.8 fl L fl (81-99) MCH 25.1 pg L pg (28.0-34.0) MCHC 31.9 g/dL g/dL (30.0-36.0) RDW 17.2 % H % (12.1-15.1) Plt Count 149 10^3/cmm 10^3 /cmm (130-400) MPV 10.4 fL fL (7.4-10.4) Neut % (Auto) 75.8 % % Lymph % (Auto) 5.2 % % [place] % (Auto) 10.7 % % Eos % (Auto) 6.3 % % Baso % (Auto) 1.3 % % Neut # (Auto) 4.24 10^3/uL 10^3 /uL (1.8-7.7) Lymph # (Auto) 0.3 10^3/uL L 10^ 3/uL (0.8-4.8) [place] # (Auto) 0.6 10^3/uL 10^3/ uL (0.2-0.9) Eos # (Auto) 0.4 10^3/uL 10^3/ uL (0.0-0.8) Baso # (Auto) 0.1 10^3/uL 10^3/ uL (0.0-0.1) Nucleated RBC % (a uto) 0 % % Nucleated RBCs # 0.0 /100WBC /100W BC PT 15.60 SECONDS H S ECONDS (12.1-14.9) INR 1.21 H (0.8-1.2) Sodium 121 mmol/L L mmol /L (136-145) Potassium 5.0 mmol/L mmol/L (3.5-5.1) Chloride 90 mmol/L L mmol/ L (98-107) Carbon Dioxide 23 mmol/L mmol/L (22-29) Anion Gap 13.0 (5-19) BUN 12 mg/dL mg/dL (8-23) Creatinine 0.7 mg/dL mg/dL (0.5-0.9) GFR Calculation 85.1 mL/min L mL/ min (90-130) Glucose 324 mg/dL H mg/dL (65-115) Calculated Osmolal ity 264 mOsm/kg L mOs m/kg (285-295) Calcium 8.7 mg/dL mg/dL (8.5-10.5) Magnesium 1.6 mg/dL L mg/dL (1.7-2.3) Total Bilirubin 0.7 mg/dL mg/dL (0.15-1.2) AST 55 U/L H U/L (0-32) ALT 54 U/L H U/L (0-33) Alkaline Phosphata se 248 IU/L H IU/L (35-105) C-Reactive Protein 16.6 mg/L H mg/L (0.0-4.9) Total Protein 6.8 g/dL g/dL (6.6-8.7) Albumin 3.0 g/dL L g/dL (3.5-5.2) Globulin 3.8 g/dL g/dL (1.3-4.6) Urine Color Urine Appearance Urine pH Ur Specific Gravit y Urine Protein Urine Glucose (UA) Urine Ketones Urine Blood Urine Nitrate Urine Bilirubin Urine Urobilinogen Ur Leukocyte [place] ase 02/28/21 04:28 WBC RBC Hgb Hct MCV MCH MCHC RDW Plt Count MPV Neut % (Auto) Lymph % (Auto) [place] % (Auto) Eos % (Auto) Baso % (Auto) Neut # (Auto) Lymph # (Auto) [place] # (Auto) Eos # (Auto) Baso # (Auto) Nucleated RBC % (a uto) Nucleated RBCs # PT INR Sodium Potassium Chloride Carbon Dioxide Anion Gap BUN Creatinine GFR Calculation Glucose Calculated Osmolal ity Calcium Magnesium Total Bilirubin AST ALT Alkaline Phosphata se C-Reactive Protein Total Protein Albumin Globulin Urine Color Yellow (Yellow) Urine Appearance Clear (CLEAR) Urine pH 5 (5-7) Ur Specific Gravit y 1.010 (1.005-1.030) Urine Protein Neg (Negative) Urine Glucose (UA) 4+ H (Normal) Urine Ketones Negative (Negative) Urine Blood Neg (Negative) Urine Nitrate Negative (Negative) Urine Bilirubin Neg (Negative) Urine Urobilinogen Norm mg/dL mg/dL (Negative) Ur Leukocyte [place] ase Negative (Negative) Discharge Plan Discharge Patient Disposition: Home Clinical Impression: End stage liver disease, Alcoholic cirrhosis Ascites Qualifiers: Ascites type: due to alcoholic cirrhosis Qualified Code(s): K70.31 - Alcoholic cirrhosis of liver with ascites Sinusitis Qualifiers: Sinusitis location: sphenoidal Chronicity: acute Condition: Stable Prescriptions: New guaifenesin [Mucinex] 600 mg tablet extended release 12hr 600 mg PO BID PRN (Reason: congestion) Qty: 14 RF: 0 No Action propranolol 120 mg capsule,extended release 24 hr 120 mg PO DAILY RF: 0 metformin 1,000 mg tablet 1,000 mg PO BID RF: 0 trazodone 50 mg tablet 50 mg PO DAILY RF: 0 spironolactone 50 mg tablet 50 mg PO QAM RF: 0 cyclobenzaprine 10 mg tablet 10 mg PO TID RF: 0 glipizide 10 mg tablet extended release 24hr 10 mg PO DAILY Qty: 30 RF: 2 azelastine 137 mcg (0.1 %) aerosol,spray 2 spray intranasal BID RF: 0 cetirizine 10 mg tablet 10 mg PO DAILY PRN (Reason: Allergic Symptoms) RF: 0 levothyroxine [Euthyrox] 75 mcg tablet 75 mcg PO DAILY RF: 0 ferrous sulfate 325 mg (65 mg iron) tablet 325 mg PO DAILY RF: 0 fluticasone propionate 50 mcg/actuation spray,suspension 2 spray intranasal DAILY RF: 0 furosemide 40 mg tablet 40 mg PO DAILY RF: 0 magnesium oxide,aspartate,citr 400 mg magnesium capsule 400 mg PO DAILY RF: 0 omeprazole 40 mg capsule,delayed release(DR/EC) 40 mg PO BID RF: 0 tramadol 50 mg tablet 50 mg PO Q8H PRN (Reason: Pain, Moderate) RF: 0 albuterol sulfate [Ventolin HFA] 90 mcg/actuation HFA aerosol inhaler 2 puff inhalation QID RF: 0 lidocaine (PF) 10 mg/mL (1 %) solution 10 mg SUBCUT ONCE Qty: 1 RF: 0 Discharge Orders: Discharge ED (Routine); Ordered 02/28/21 Ordered By: Nabor Dockery Referrals: Berny Crooks MD [Physician] - 4-7 days Mary Tsai MD [Primary Care Provider] - Patient Instructions: Sinusitis (ED), Ascites (ED) Activity Restrictions/Additional Instructions: Return for fever greater than 100, vomiting liquids or medications, worsening pain, other concerning symptoms peer Sign Out Sign Out Data: Patient Sign Out occurred on 02/28/21 at 07:11. Patient's care was discussed, and care was transferred from to Nabor Dockery DO. Coding Level of Care Code ED Devops Engineer for Chg Fwd Exam Detailed
[2021-02-28 06:33] VITALS: BP 104/56; PULSE 75; RESP 16; O2SAT 100
[2021-02-28 07:12] VITALS: BP 93/53; PULSE 77; RESP 16; O2SAT 100
[2021-02-28 08:17] VITALS: BP 109/73; PULSE 75; RESP 18; O2SAT 100
[2021-02-28 09:12] VITALS: BP 104/66; PULSE 71; RESP 18; O2SAT 100
== END 2021-02-28 09:18 | disposition home or self-care (01) ==
PROVIDERS: Emergency Medicine; Emergency Provider Family Medicine; PCP Family Medicine
DX: K72.90 Hepatic failure, unspecified without coma (principal); K70.31 Alcoholic cirrhosis of liver with ascites; Z79.84 Long term (current) use of oral hypoglycemic drugs; E11.9 Type 2 diabetes mellitus without complications; Z87.891 Personal history of nicotine dependence; R18.8 Other ascites
CPT/HCPCS: 49082; 71045; 76705; 80053; 81003; 83735; 85025; 85610; 86140; 93005; 99284

== ENCOUNTER → 2021-02-28 09:24 | Day surgery (SDC) | payer MEDICARE, MEDICAID, SELFPAY ==
[2021-02-28 09:50] VITALS: BP 118/71; PULSE 67; RESP 20; TEMP 36.5; O2SAT 100
[2021-02-28 10:01] VITALS: BMI 23.6
--- NOTE | 2021-02-28 11:00 | US_ITS ---
WS: [id number] Abdominal ultrasound, limited. History: Evaluate for ascites. Comparison: None. All 4 quadrants are imaged by ultrasound to evaluate for ascites. Large amount of ascites in all 4 qu adrants. US/US abdomen lmt fluid [id number] IMPRESSION: Large amount of ascites.
== END ==
PROVIDERS: PCP Family Medicine; Visit Provider Internal Medicine
DX: R18.8 Other ascites (principal)
CPT/HCPCS: 49082; 76705

== ENCOUNTER 2021-03-07 10:39 | Outpatient (CLI) | payer MEDICARE, MEDICAID, SELFPAY ==
--- NOTE | 2021-03-07 11:30 | US_ITS ---
WS: [id number] Abdominal ultrasound, limited. History: Evaluate for ascites. Comparison: None. All 4 quadrants are imaged by ultrasound to evaluate for ascites. Moderate to large amount of ascites in all 4 quadrants. US/US abdomen lmt fluid [id number] IMPRESSION: Moderate to large amount of ascites.
[2021-03-07 11:45] VITALS: BP 110/61; PULSE 75; RESP 18; TEMP 36.3; O2SAT 98; BMI 21.2
--- NOTE | 2021-03-07 12:15 | PC.NURSE ---
1205 Dr. Crooks at bedside for US guided paracentesis. site marked per radiology. 10ml 1% lidocaine used for local in LLQ prior to procedure. Patient draining clear keli fluid, tolerating well.
[2021-03-07 12:51] VITALS: BP 108/71; PULSE 70; RESP 18; O2SAT 100
--- NOTE | 2021-03-07 13:07 | PM.ACPR ---
Acute Procedures Paracentesis: Time out performed: Yes Indication: Ascites Procedure: therapeutic paracentesis Location: LLQ Local anesthetic used: lidocaine 1% Amount of anesthesia used (ml): 10 Bedside ultrasound used: yes, Ascites confirmed and location marked Preparation: sterile prep and drape and 11 blade used to make shade in skin Amount of fluid obtained (ml): 5,700 Fluid: clear Post procedure exam: awake, alert Complications: none
== END 2021-03-07 10:40 | disposition home or self-care (01) ==
LOC: RAD 10:44 → GILAB 11:44
PROVIDERS: PCP Family Medicine; Visit Provider Internal Medicine
DX: R18.8 Other ascites (principal)
CPT/HCPCS: 49082; 76705

== ENCOUNTER → 2021-03-14 10:27 | Day surgery (SDC) | payer MEDICARE, MEDICAID, SELFPAY ==
--- NOTE | 2021-03-14 10:34 | US_ITS ---
WS: [id number] Abdominal ultrasound, limited. History: Evaluate for ascites. Comparison: None. All 4 quadrants are imaged by ultrasound to evaluate for ascites. Large amount of ascites in all 4 qu adrants. US/US abdomen limited [id number] IMPRESSION: Large amount of ascites.
[2021-03-14 10:53] VITALS: BP 116/72; PULSE 81; RESP 20; TEMP 37.1; O2SAT 100
[2021-03-14 11:36] VITALS: BMI 22.1
[2021-03-14 12:45] VITALS: BP 96/55; PULSE 81; RESP 18; O2SAT 100
== END ==
PROVIDERS: PCP Family Medicine; Visit Provider Internal Medicine
DX: R18.8 Other ascites (principal)
CPT/HCPCS: 49082; 76705